=== PATIENT | female | born 1975 | race Caucasian/White ===

== ENCOUNTER 2021-06-17 00:38 | Emergency (ER) | payer BC ==
[~2021-06-17] VITALS: Ht 167.6 cm; Wt 113.6 kg
[2021-06-17] MEDS ORDERED: PRED20TA PO (00:42)
[2021-06-17] MEDS ORDERED: ALBU8HFA PO (00:42)
[2021-06-17] MEDS ORDERED: dexamethasone 4mg tablet PO ONE (00:45)
[2021-06-17] MEDS ORDERED: albuterol 2.5 MG/3 ML nebule CONTNEB PRN (00:45)
--- NOTE | 2021-06-17 00:56 | NUR ---
DR. GREY REPORTS PT WILL NOT NEED LABS OR IV. RT NOW AT BEDSIDE FOR CONT NEB TREATMENT.
--- NOTE | 2021-06-17 00:58 | NUR ---
RT at bedside.
[2021-06-17 01:46] VITALS: BP 122/78
== END 2021-06-17 02:16 | disposition home or self-care (01) ==
LOC: ER 00:40
DX: J45.901 Unspecified asthma with (acute) exacerbation (principal)
CPT/HCPCS: 82948; 94640; 94644; 94760; 99285; A7015

== ENCOUNTER → 2021-09-27 | Emergency (ER) | payer BC ==
[~2021-09-27] VITALS: Ht 165.1 cm; Wt 118.2 kg
[2021-09-27 15:07] VITALS: BP 126/64
== END | disposition left against medical advice (07) ==
LOC: ER 14:24
DX: H57.10 Ocular pain, unspecified eye (principal); M79.643 Pain in unspecified hand; Z53.21 Procedure and treatment not carried out due to patient leaving prior to being seen by health care provider